=== PATIENT | male | born 1975 | race Caucasian/White ===

== ENCOUNTER 2022-08-18 13:23 | Emergency (ER) | payer OTHER ==
[2022-08-18 13:28] VITALS: BP 131/88; PULSE 87; RESP 18; TEMP 98.1
--- NOTE | 2022-08-18 14:58 | US ---
EXAMINATION TYPE: US scrotum with doppler. Grayscale and color Doppler Duplex imaging performed of brigitte chung scrotum. DATE OF EXAM: 08/18/2022 COMPARISON: NONE CLINICAL HISTORY: right sided swelling and pain. Right testicular swelling and pain. EXAM MEASUREMENTS: TESTICLES: Right Testicle: 4.4 x 3.3 x 2.8 cm Left Testicle: 4.5 x 2.6 x 2.3 cm EPIDIDYMIS HEAD: Right Epididymis: 0.9 x 1.0 x 1.4 cm Left Epididymis: 0.8 x 1.1 x 1.1 cm *Anechoic area seen within left epididymal head: 0.3 x 0.3 x 0.3 cm. Doppler performed to assess for testicular vascularity; bilateral color flow and waveforms are seen. Presence of hydroceles: Yes, right: 4.0 x 3.8 x 2.1 cm. Left: 1.6 x 1.1 x 0.6 cm. Presence of varicoceles: Prominent vessels seen lateral to the left testicle. Possible slightly increased vascularity within right testicle in comparison to the left testicle. IMPRESSION: 1. Mildly increased asymmetric vascular flow within the right testis caudally for epididymoorchitis. 2. Small right hydrocele could be secondary to #1.
[2022-08-18] MEDS ORDERED: LEVOFLOXACIN 500 MG TAB PO STA (16:01)
--- NOTE | 2022-08-18 16:05 | ED ---
General Adult HPI - General Chief complaint: Urogenital Stated complaint: Male Time Seen by Provider: 08/18/22 15:07 Source: patient, RN notes reviewed Mode of arrival: ambulatory Limitations: no limitations - History of Present Illness Initial comments: Patient is a pleasant 46-year-old male presenting to the emergency Department with right testicle discomfort. Onset of symptoms was 6 days ago. Patient does have some swelling. Discomfort does increase with touch. No trauma. No history of similar symptoms previous. No urethral discharge or dysuria. No history of similar symptoms previously. - Related Data Previous Rx's Medication Instructions Recorded Cephalexin [Keflex] 500 mg PO Q6HR #40 cap 04/01/16 Levofloxacin [Levaquin] 500 mg PO DAILY #9 tab 08/18/22 Allergies Allergy/AdvReac Type Severity Reaction Status Date / Time No Known Allergies Allergy Verified 08/18/22 13:27 Review of Systems ROS Statement: Those systems with pertinent positive or pertinent negative responses have been documented in the HPI. ROS Other: All systems not noted in ROS Statement are negative. Constitutional: Denies: fever Eyes: Denies: eye pain ENT: Denies: ear pain Respiratory: Denies: cough Cardiovascular: Denies: chest pain Endocrine: Denies: fatigue Gastrointestinal: Denies: abdominal pain Genitourinary: Reports: as per HPI, testicular pain. Denies: dysuria Musculoskeletal: Denies: back pain Skin: Denies: rash Neurological: Denies: weakness Past Medical History Past Medical History: No Reported History History of Any Multi-Drug Resistant Organisms: None Reported Past Surgical History: Back Surgery Past Psychological History: No Psychological Hx Reported Smoking Status: Light tobacco smoker Past Alcohol Use History: Occasional Past Drug Use History: None Reported General Exam Limitations: no limitations General appearance: alert, in no apparent distress Head exam: Present: normocephalic Eye exam: Present: normal appearance Neck exam: Present: normal inspection Respiratory exam: Present: normal lung sounds bilaterally Cardiovascular Exam: Present: regular rate, normal rhythm GI/Abdominal exam: Present: soft. Absent: tenderness exam: Present: scrotal swelling (Right-sided with tenderness, no erythema) Extremities exam: Present: normal inspection Neurological exam: Present: alert Psychiatric exam: Present: normal affect, normal mood Skin exam: Present: normal color. Absent: erythema Course Vital Signs 08/18/22 13:25 Temperature 98.1 F Pulse Rate 87 Respiratory 18 Rate Blood Pressure 131/88 O2 Sat by Pulse 99 Oximetry Medical Decision Making - Radiology Data Radiology results: report reviewed (Right-sided epididymal orchitis) Disposition Clinical Impression: Epididymo-orchitis Disposition: HOME SELF-CARE Condition: Stable Instructions (If sedation given, give patient instructions): Epididymo-Orchitis (ED) Additional Instructions: Please do follow-up with primary care physician in the next couple days for recheck, also follow-up with urology, number provided. Return for fever, increased pain or swelling, redness, worsening symptoms or other concerns. Pres cription sent to pharmacy, please start tomorrow. Prescriptions: Levofloxacin [Levaquin] 500 mg PO DAILY #9 tab Is patient prescribed a controlled substance at d/c from ED?: No Referrals: Benitez Hackett MD [STAFF PHYSICIAN] - 1-2 days Hosea Cooper MD [STAFF PHYSICIAN] - 1-2 days Time of Disposition: 16:04
== END 2022-08-18 17:08 | disposition home or self-care (01) ==
LOC: EC 13:23
DX: N45.3 Epididymo-orchitis (principal); F17.290 Nicotine dependence, other tobacco product, uncomplicated
CPT/HCPCS: 76870; 93975; 99284